=== PATIENT | female | born 1935 | race Caucasian/White ===

== ENCOUNTER 2016-12-27 15:30 | Emergency (ER) | payer OTHER ==
[2016-12-27 16:21] VITALS: BP 142/70
--- NOTE | 2016-12-27 16:57 | UC ---
Complaint Female HPI - HPI Summary HPI Summary: urinary pain and burning began this morning, no fevers, chills, night sweats, back pain - History Of Current Complaint Chief Complaint: UCGU Stated Complaint: POSSIBLE UTI Time Seen by Provider: 12/27/16 16:32 Hx Obtained From: Patient ?: No Onset/Duration: Sudden Onset, Lasting Days - 1, Still Present Timing: Constant Severity Initially: Mild Severity Currently: Mild Character: Burning Aggravating Factor(s): Urination Alleviating Factor(s): Nothing Associated Signs And Symptoms: Positive: Negative - Allergies/Home Medications Allergies/Adverse Reactions: Allergies Allergy/AdvReac Type Severity Reaction Status Date / Time No Known Allergies Allergy Verified 12/27/16 16:13 Home Medications: Home Medications Ascorbic Acid TAB* [Vitamin C TAB*] 500 mg PO DAILY 12/27/16 [History Confirmed 12/27/16] Aspirin [Aspirin 81 MG TAB] 81 mg PO DAILY 12/27/16 [History Confirmed 12/27/16] Calcium [[place] 500] 500 mg PO DAILY 12/27/16 [History Confirmed 12/27/16] Cholecalciferol [Vitamin D] 1,000 unit PO DAILY 12/27/16 [History Confirmed ] PMH/Surg Hx/FS Hx/Imm Hx Previously Healthy: No Cardiovascular History Of: 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 hernia - Family History Known Family History: Positive: None - Social History Occupation: Retired Lives: With Family Alcohol Use: Occasionally Substance Use Type: None Smoking Status (MU): Former Smoker When Did the Patient Quit Smoking/Using Tobacco: 50 years ago Review of Systems Constitutional: Negative Skin: Negative Eyes: Negative ENT: Negative Respiratory: Negative Cardiovascular: Negative Gastrointestinal: Negative Genitourinary: Dysuria, Frequency, Urgency Motor: Negative Neurovascular: Negative Musculoskeletal: Negative Neurological: Negative Psychological: Negative All Other Systems Reviewed And Are Negative: Yes Physical Exam Triage Information Reviewed: Yes Appearance: Well-Appearing, No Pain Distress, Well-Nourished Vital Signs: Initial Vital Signs Temp 99 F 12/27/16 16:15 Pulse 78 12/27/16 16:15 Resp 18 12/27/16 16:15 BP 142/70 12/27/16 16:15 Pulse Ox 98 12/27/16 16:15 Vital Signs Reviewed: Yes Eye Exam: Normal Eyes: Positive: Conjunctiva Clear ENT Exam: Normal ENT: Positive: Normal ENT inspection, Hearing grossly normal. Negative: Nasal congestion, Nasal drainage, Trismus, Muffled/hoarse voice Neck exam: Normal Neck: Positive: Supple, Nontender Respiratory Exam: Normal Respiratory: Positive: Chest non-tender, No respiratory distress, No accessory muscle use Cardiovascular Exam: Normal Cardiovascular: Positive: RRR, Pulses Normal, Brisk Capillary Refill Abdominal Exam: Normal Abdomen Description: Positive: Nontender, No Organomegaly, Soft Musculoskeletal Exam: Normal Musculoskeletal: Positive: Strength Intact, ROM Intact, No Edema Neurological Exam: Normal Neurological: Positive: Alert, Muscle Tone Normal Psychological Exam: Normal Skin Exam: Normal Diagnostics - Laboratory Diagnostic Studies Completed/Ordered: ua-positive for blood, ketones and leuks, (-) nitrites Complaint Female Dx - Course Course Of Treatment: keflex, increase fluid, culture urine, re-check with pcp in 10-14 days - Differential Dx/Diagnosis Differential Diagnosis/HQI/PQRI: Renal Colic, Ureteral Stone, Urinary Tract Infection Provider Diagnoses: UTI, Hematuria Discharge - Discharge Plan Condition: Stable Disposition: HOME Prescriptions: Cephalexin CAP* [Keflex CAP*] 500 mg PO BID #20 cap Patient Education Materials: Cephalexin (By mouth), Urinary Tract Infection in Women (ED), Hematuria (ED) Referrals: Non Staff,Doctor [Primary Care Provider] - Additional Instructions: Re check your urine with your provider in 10-14 days
== END 2016-12-27 16:55 | disposition home or self-care (01) ==
LOC: UCCORT 15:30
DX: N39.0 Urinary tract infection, site not specified (principal); R31.9 Hematuria, unspecified; Z95.1 Presence of aortocoronary bypass graft; Z87.891 Personal history of nicotine dependence
CPT/HCPCS: 81003; 87086; 99202; G0463